=== PATIENT | male | born 1935 | race Caucasian/White ===

== ENCOUNTER 2016-12-27 16:12 | Emergency (ER) | payer MEDICARE, OTHER ==
[2016-12-27 16:35] VITALS: BP 124/76
--- NOTE | 2016-12-27 16:42 | UC ---
Cardiac HPI - HPI Summary HPI Summary: 81 yr old male with previous h/o MD, carotid disease, afib, mitral valve repair is brought in by a friend, Romaine, due to nausea, left arm and left neck pain that started this morning. He felt fine yesterday and does admit that he was shoveling a lot yesterday. Last cath was prior to [facility] around 2006. He states that not mucg was found, he did not require stents or CABG. Strategic Marketing Manager was Dr Ordoñez and surgeon Dr Leigh. He has not seen a business intelligence consultant since then. He only goes to his PCP. He is on metoprolol and pradaxa. did not take metoprolol today bc he was nauseated and didnt eat and was told to take it with food. he did take pradaxa. no known DM hx. has left carotid disease he states. was told the bottom of his hearty was "black" meaning he had an MD, but does not recall ever having an MD. Last PCP Dr Quijano wanted him to have a catheterization, but he refused - this was at least a few years ago. His friend wanted to take him to the ER, but he refused and wanted to come here instead. - History of Current Complaint Stated Complaint: L ARM PAIN.NAUSEA Time Seen by Provider: 12/27/16 16:17 - Allergy/Home Medications Allergies/Adverse Reactions: Allergies Allergy/AdvReac Type Severity Reaction Status Date / Time No Known Allergies Allergy Verified 04/11/16 17:58 PMH/Surg Hx/FS Hx/Imm Hx Previously Healthy: No Endocrine History Of: Reports: Thyroid Disease - THYROID LEVEL LOW, TAKING KELP Cardiovascular History Of: Reports: Cardiac Disorders - a-fib Denies: Pacemaker/ICD Respiratory History Of: Reports: COPD, Bronchitis - JANUARY 2016 GI/ History Of: Reports: Ulcer - PEPTIC ULCERS IN PAST - Surgical History Surgical History: Yes Surgery Procedure, Year, and Place: TONSILS- 35 YRS OF AGE- [place]. APPENDECTOMY- - [place]. PARTIAL COLECTOMY- 1990- [place]. MITRAL VALVE REPLACEMENT- DECEMBER 2006 (PT STATES IT IS A TISSUE VALVE)- [facility] - Family History Known Family History: Positive: Cardiac Disease - Social History Alcohol Use: None Substance Use Type: None Smoking Status (MU): Former Smoker Type: Cigarettes Amount Used/How Often: 1/2-1 PPD FOR 20 YRS Length of Time of Smoking/Using Tobacco: 20 YRS Have You Smoked in the Last Year: No When Did the Patient Quit Smoking/Using Tobacco: 1972 Review of Systems Constitutional: Fatigue Skin: Negative Eyes: Negative ENT: Negative Respiratory: Negative Cardiovascular: Negative Gastrointestinal: Other - nausea Genitourinary: Negative Motor: Negative Neurovascular: Negative Musculoskeletal: Negative Neurological: Negative Psychological: Negative All Other Systems Reviewed And Are Negative: Yes Physical Exam Triage Information Reviewed: Yes Appearance: Ill-Appearing - holding his left shoulder, slightly ashen in color. Vital Signs Reviewed: Yes Eye Exam: Normal ENT Exam: Normal Neck exam: Normal Neck: Positive: Supple, Nontender, No Lymphadenopathy, Other: - no carotid bruits b/l Respiratory: Positive: Lungs clear, Normal breath sounds Cardiovascular: Positive: Tachycardia, Other: - + murmur Abdomen Description: Positive: Nontender, Soft Musculoskeletal Exam: Normal Neurological Exam: Normal Psychological Exam: Normal Skin Exam: Normal Re-Evaluation - Re-Evaluation First Eval Re-Evaluation Time: 16:45 Change: Worse - Pt has become more nauseated, perspiring and feeling shaky. BP elevated to 160s/90s. O2 2 L NC applied with O2 up to 100%. 3 81mgs Asa given to chew. BS 80s. IV inserted. Monitor applied showing AFIB without any acute ST , T changes. - Assessment/Plan Course Of Treatment: EKG - atrial fibrillation with uncontrooled rate at 130s. no acute ST/T changes. There is no change from ekg in March 2016. 911 called for ACLS. - Differential Diagnoses - Chest Pain Differential Diagnosis/HQI/PQRI: Acute MD, ACS, Aortic Aneurysm, Chest Wall, Pulmonary Edema, Pulmonary Embolism, Other: - left shoulder pain - Clinical Impression Provider Diagnoses: nausea, left arm pain, left neck pain, r/o ACS, atrial fibrillation. CAD, carotid stenosis, artificial mitral valve - Physician Notifications Discussed Patient Care With: Rj Hightower NP at [facility] which is the closest facility necessary for emergent care. Time Discussed With Above Provider: 16:50 Discharge - Discharge Plan Condition: Fair Disposition: TRANS HIGHER LVL OF CARE FAC
[2016-12-27] MEDS ORDERED: Aspirin Low Dose CHEW TAB* 81 MG PO ONE (16:52)
== END 2016-12-27 17:21 | disposition short-term general hospital (02) ==
LOC: UCCORT 16:12
DX: R11.0 Nausea (principal); M79.602 Pain in left arm; M54.2 Cervicalgia; R07.89 Other chest pain; I48.91 Unspecified atrial fibrillation; E03.9 Hypothyroidism, unspecified; R53.83 Other fatigue; Z95.2 Presence of prosthetic heart valve; Z87.891 Personal history of nicotine dependence
CPT/HCPCS: 93005; 99213; G0463